=== PATIENT | male | born 1990 | race Caucasian/White ===

== ENCOUNTER 2023-04-16 20:34 | Emergency (ER) | payer OTHER ==
[~2023-04-16] VITALS: Ht 182.9 cm; Wt 93.0 kg
[2023-04-16 20:42] VITALS: BP 149/100
== END 2023-04-16 21:41 | disposition home or self-care (01) ==
LOC: ER 20:34
DX: S53.401A Unspecified sprain of right elbow, initial encounter (principal); X58.XXXA Exposure to other specified factors, initial encounter
CPT/HCPCS: 73080; 99283-25

== ENCOUNTER 2023-05-23 06:43 | Emergency (ER) | payer OTHER ==
[~2023-05-23] VITALS: Ht 182.9 cm; Wt 120.2 kg
[2023-05-23 07:42] VITALS: BP 157/100
== END 2023-05-23 08:43 | disposition home or self-care (01) ==
LOC: ER 06:43
DX: U07.1 COVID-19 (principal); J02.8 Acute pharyngitis due to other specified organisms; G47.33 Obstructive sleep apnea (adult) (pediatric)
CPT/HCPCS: 87081; 87430; 99283; J1100

== ENCOUNTER 2025-01-12 10:23 | Emergency (ER) | payer OTHER ==
[~2025-01-12] VITALS: Ht 188 cm; Wt 111.1 kg
[2025-01-12 10:42] VITALS: BP 154/105
== END 2025-01-12 13:16 | disposition home or self-care (01) ==
LOC: ER 10:23
DX: M54.6 Pain in thoracic spine (principal); G47.33 Obstructive sleep apnea (adult) (pediatric); Z59.89 Other problems related to housing and economic circumstances
CPT/HCPCS: 72070; 72100; 99283-25